=== PATIENT | female | born 1955 | race Caucasian/White ===

== ENCOUNTER 2022-10-04 12:07 | Emergency (ER) | payer MEDICARE, BC ==
[~2022-10-04] VITALS: Ht 165.1 cm; Wt 59.0 kg
[2022-10-04 12:20] VITALS: BP 157/90
[2022-10-04] MEDS ORDERED: ACETAMINOPHEN 325 MG TABLET ONE (13:05)
[2022-10-04] MEDS: ACETAMINOPHEN 325 MG TABLET PO ONE (13:06)
--- NOTE | 2022-10-04 13:13 | NUR ---
FLU AND COVID SWABS DONE AND SENT TO LAB
--- NOTE | 2022-10-04 13:15 | NUR ---
Patient discharged to home in stable condition. Written and verbal after care instructions given. Patient verbalizes understanding of instruction.
== END 2022-10-04 13:15 | disposition home or self-care (01) ==
LOC: ER 12:16
DX: J06.9 Acute upper respiratory infection, unspecified (principal); M79.10 Myalgia, unspecified site; B97.89 Other viral agents as the cause of diseases classified elsewhere; Z20.822 Contact with and (suspected) exposure to COVID-19; Z88.0 Allergy status to penicillin
CPT/HCPCS: C9803